=== PATIENT | male | born 1960 | race Caucasian/White ===

== ENCOUNTER 2017-03-13 11:51 | Outpatient (CLI) | payer BC, MEDICARE ==
--- OUTSIDE RECORDS SUMMARY | 2017-03-13 11:54 | XMS | Clinical Summary ---
:1960 Author Organization [facility] Address [address] [place] [address] Phone Care Team Providers Name Role Phone , Primary Care Provider Unavailable Allergies Not on File Current Medications Not on file Active Problems Not on file Social History Tobacco Use Types Packs/Day Years Used Date Never Assessed Sex Assigned at Date Recorded Not on file Last Filed Vital Signs Not on file Plan of Treatment Not on file Results Not on filefrom Last 3 Months
--- NOTE | 2017-03-13 12:58 | RAD ---
PA AND LATERAL VIEWS OF CHEST: Date: 03/13/17 HISTORY: Cough, congestion. FINDINGS: Comparison made with exam of 02/24/17. The heart size is normal. The lungs are well expanded without lobar consolidation or pneumothoraces. There are small posterior pleural effusions, new since the last exam. IMPRESSION: Small posterior pleural effusions. POS: [facility]
== END 2017-03-13 11:52 | disposition home or self-care (01) ==
LOC: SCSRAD 11:51
PROVIDERS: ATTEND Family Medicine
DX: R05 Cough (principal); R50.81 Fever presenting with conditions classified elsewhere; J90 Pleural effusion, not elsewhere classified
CPT/HCPCS: 71020

== ENCOUNTER 2017-03-14 18:50 | Emergency (ER) | payer BC, MEDICARE ==
--- OUTSIDE RECORDS SUMMARY | 2017-03-14 18:52 | XMS | Clinical Summary ---
:1960 Author Organization [facility] Address [address] [place] [address] Phone Care Team Providers Name Role Phone [...]
[2017-03-14] MEDS ORDERED: Albuterol Sulfate 2.5 mg/0.5 ml Neb ONE ×2 (20:14→20:29)
[2017-03-14] MEDS ORDERED: Sodium Chloride For Inhalation 0.9% 3 ML NEB ONE (20:30)
--- NOTE | 2017-03-14 22:14 | RAD ---
TWO VIEWS CHEST: 03/14/17 COMPARISON: 03/13/17 HISTORY: Cough and shortness of breath. FINDINGS: Persistent enlarged cardiac silhouette. Pulmonary vessels continue to be prominent. There is increas ed blunting of the left costophrenic angle due to pleural effusion. There are chronic interstitial c hanges throughout the lung parenchyma. Superimposed infiltrate in the lung bases cannot be excluded. No pneumothorax or osseous abnormality. IMPRESSION: Congestive heart failure. Continued surveillance. POS: [facility]
== END 2017-03-14 21:06 | disposition home or self-care (01) ==
LOC: SCSER 18:50
DX: J45.909 Unspecified asthma, uncomplicated (principal); I48.91 Unspecified atrial fibrillation; I11.0 Hypertensive heart disease with heart failure; I50.9 Heart failure, unspecified; G47.30 Sleep apnea, unspecified; E11.9 Type 2 diabetes mellitus without complications; E78.5 Hyperlipidemia, unspecified; F41.9 Anxiety disorder, unspecified; F32.9 Major depressive disorder, single episode, unspecified; F17.210 Nicotine dependence, cigarettes, uncomplicated; Z79.84 Long term (current) use of oral hypoglycemic drugs; Z79.891 Long term (current) use of opiate analgesic; Z79.899 Other long term (current) drug therapy
CPT/HCPCS: 71020; 93005; 94640; 94664; J7611

== ENCOUNTER 2017-04-02 08:52 | Outpatient (CLI) | payer BC, MEDICARE ==
[2017-04-02 10:25] LABS: Hematocrit 47.7 % (42.0-52.0); Mean Platelet Volume 6.6 fL (7.4-10.4); Red Blood Cell (RBC) Count 5.02 mill/uL (4.70-6.10); White Blood Cell (WBC) Count 8.1 thou/uL (4.8-10.8)
[2017-04-02 10:32] LABS: PTT 33.3 SEC (22.9-36.1); Prothrombin Time 12.9 SEC (12.0-14.7)
[2017-04-02 10:45] LABS: Anion Gap 12 mmol/L (10-20); BUN (Urea Nitrogen) 14 mg/dL (8.4-25.7); Calc. Creatinine Clearance 0 mL/min (70-130); Calcium 10.1 mg/dL (7.8-10.44); Carbon Dioxide 23 mmol/L (22-29); Chloride 104 mmol/L (98-107); Estimated GFR-MDRD Greater than 90
== END 2017-04-02 08:53 | disposition home or self-care (01) ==
LOC: LABBT 08:52
PROVIDERS: ATTEND Neurological Surgery
DX: Z01.812 Encounter for preprocedural laboratory examination (principal); M54.12 Radiculopathy, cervical region; M50.20 Other cervical disc displacement, unspecified cervical region
CPT/HCPCS: 80048; 85027; 85610; 85730

== ENCOUNTER 2017-04-07 05:31 | Day surgery (SDC) | payer BC, MEDICARE ==
[2017-04-02 09:18] VITALS: BMI 31.5
--- NOTE | 2017-04-02 14:19 | HP ---
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 He has been managing pain with physical maneuvers, medications, and activity modifications. These conservative measures have not helped with his pain. His professional treatment is not providing enough effective pain reliefallophyatic hydrocarbon and he is concerned that he is becoming weak. There are no left arm radicular pains or any incontinence reported. He has had this pain since 11/2016. Originally saw Dr. Love and then was referred to Dr. Briggs. PAST MEDICAL HISTORY: 1. Type 2 diabetes. 2. Hyperlipidemia. 3. Asthma. 4. Hypertension. 5. Ulcer disease. 6. Facial fracture with loss of number of teeth. 7. Carpal tunnel syndrome, bilateral. 8. Sleep apnea. 9. Ureteral stone. 10. Nephrolithiasis. 11. Acute pyelonephritis, ureteral stent. 12. CVA tenderness. 13. Reflex sympathetic dystrophy in the upper limb. 14. Vitamin B6-induced neuropathy 15. Essential hypertension, benign. ALLERGIES: PENICILLIN, NUCYNTA, TRAMADOL, SUBOXONE, LYRICA. REVIEW OF SYSTEMS: Ten-point review of systems completed and is otherwise negative unless stated in the above HPI. HEENT: Normocephalic, atraumatic. Hearing intact. Moist mucous membranes. Trachea midline. EYES: Pupils are equal and reactive to light. Extraocular muscles are intact. Sclerae is white, nonicteric. CARDIOVASCULAR: Normal S1, S2. Heart sounds regular rate and rhythm. No distal cyanosis or clubbing noted. RESPIRATORY: Patient had bilateral symmetric chest rise. Appears to be in no shortness breath. NEUROLOGIC: Motor Exam: Mild weakness on the right. Sensory exam, some loss of sensation in the C7 dermatome. IMAGING: MRI large cervical C6-C7 HNP, smaller disk at C5-C6. X-rays osteophytes shows at C6-C7, were obtained at [facility]. ASSESSMENT: 1. Cervical disk disorder at C6-C7 level with radiculopathy. 2. Complex regional pain syndrome one of the upper limb bilaterally. PLAN: Dr. Briggs had 20-minute discussion about arthroplasty with Mr. Foley. Informed consent was given. We discussed the indication, risks, benefits, alternatives, and expected results from surgery. The risks discussed included, but were not limited to bleeding, infection, CSF leak, nerve damage, weakness, swallowing trouble, feeding tube placement, tracheal injury, esophageal injury, vocal cord injury, spinal cord injury, incontinence, paralysis, ventilator dependence, wheelchair dependence, stroke, loss of vision, carotid artery injury , jugular vein injury, hardware misplacement, cardiopulmonary complications of anesthesia or . Long-term complications discussed included, but were not limited to hardware failure and degeneration of the surrounding disk. He understands the risks and is willing to proceed with the surgery. SHA
[2017-04-07] MEDS ORDERED: Fentanyl 250 MCG/5 ML VIAL ONE (06:12)
[2017-04-07] MEDS ORDERED: Midazolam HCl 2 mg/2 ml Vial ONE (06:12)
[2017-04-07] MEDS ORDERED: Sodium Chloride 0.9% 10 ML ONE (06:17)
[2017-04-07] MEDS ORDERED: Thrombin 5000 UNITS/5 ML VIAL ONE (06:17)
[2017-04-07] MEDS ORDERED: Clindamycin/D5W 900 mg/50 ml Premix Bag ONE (06:24)
[2017-04-07] MEDS ORDERED: Levofloxacin 500 mg/D5W 100 ml Premix Bag ONE (06:24)
[2017-04-07] MEDS ORDERED: Ondansetron HCl/PF 4 MG/2 ML Vial ONE (07:17)
[2017-04-07] MEDS ORDERED: Esmolol 100 MG/10 ML VIAL ONE (07:17)
[2017-04-07] MEDS ORDERED: Glycopyrrolate 0.2 MG/ML 5 ML SYRINGE ONE (07:17)
[2017-04-07] MEDS ORDERED: Dexamethasone 20 MG/5 ML VIAL ONE (07:17)
[2017-04-07] MEDS ORDERED: PHENYLEPHRINE-NS 100 MCG/ML 10 ML SYRINGE ONE (07:17)
[2017-04-07] MEDS ORDERED: ePHEDrine/0.9% NaCl/PF SYRINGE 50 mg/10 ml ONE (07:17)
[2017-04-07] MEDS ORDERED: Lidocaine 1% PF 5 ML VIAL ONE (07:17)
[2017-04-07] MEDS ORDERED: Propofol 200 MG/20 ML VIAL ONE (07:17)
[2017-04-07] MEDS ORDERED: Fentanyl 100 MCG/2 ML VIAL ONE ×4 (08:54→11:42)
--- NOTE | 2017-04-07 11:01 | OP ---
DATE OF PROCEDURE: 04/07/2017 SURGEON: Lindsay Briggs M.D. LOSS PREVENTION SUPERVISOR: Matias Parker PA-C. PREOPERATIVE INDICATION: Treat pain, prevent neurological deterioration. PREOPERATIVE DIAGNOSES: Intravertebral disk disease with cervical spinal stenosis and foraminal dis ease with radiculopathy at C6-C7. POSTOPERATIVE DIAGNOSES: Intravertebral disk disease with cervical spinal stenosis and foraminal di sease with radiculopathy at C6-C7. OPERATIVE PROCEDURE: Anterior cervical diskectomy, anterior cervical disk arthroplasty C6-C7. PREOPERATIVE MEDICATION: Ancef 2 grams IV. DRAIN NUMBER: Zero. DRAIN TYPE: None. OPERATIVE DICTATION: The patient was brought to the operating room. General endotracheal anesthesi a was induced. The patient was positioned on the operating table supine with his head supported by gel-filled donut shaped head rest. A lateral fluoro radiograph was used to plan our incision. The right side of the neck was sterilely prepped and draped. We opened with a 10 blade knife and contro lled bleeding with bipolar cautery. We dissected sharply to the platysma and cut this muscle in brendan e with our incision. We continued our dissection medial to the sternocleidomastoid, lateral to the trachea and esophagus. We arrived at the prevertebral space and placed a marker at C6-7. We took l ateral fluoro radiograph to confirm the levels upon which we were operating. We elevated the longus colli muscles off the anterior surface of C6 and C7 and placed a self-retaining retractor. Distrac tion pins were placed at C6 and C7 with radiographic guidance parallel to the endplates. We distrac cr across the intervening interspace with the [place] distractor. We incised the interspace with a 15 blade knife and removed disk contents using curettes and rongeurs. The operating microscope was brought into the field. Under microscopic magnification and using microsurgical techniques, we removed the remainder of the intervertebral disk. We accessed the ventral epidural space with a micro ball probe. We removed po sterior osteophytes at C6 and C7 with [place] rongeurs. We widened our anterior foraminotomy on ei ther side with 1 mm Kerr[place]. We turned our attention to sizing the interspace for our arthroplast y. Using angled curet, we flattened the medial portion of the uncovertebral joints. We made sure that the endplate at C7 was flat and that the endplate at C6 had a round shape recess to accept the super ior portion of the arthroplasty device. We measured the width of the interspace to 19 mm in height of 6 mm. A 19 x 6 x 15 mm arthroplasty device was brought into the field. We irrigated copiously w ith bacitracin irrigation before placing it. We advanced the arthroplasty device into the C6-7 inte rspace under radiographic guidance to the appropriate depth. We then removed the application device . We gently compressed across the interspace with our [place] distractor. We took AP and lateral fl uoro radiographs to confirm adequate positioning. We removed the [place] pins. We waxed the anterio r surface of vertebral body at C6 and C7, we irrigated copiously with bacitracin irrigation 1 last t ryanne. We closed the wound in anatomic layers. We applied a sterile dressing. This was a clean case with no contamination.
[2017-04-07] MEDS ORDERED: Acetaminophen/Codeine 30-300mg Tablet ONE (13:12)
--- OUTSIDE RECORDS SUMMARY | 2017-04-09 14:36 | XMS | Clinical Summary ---
:1960 Author Organization [facility] Address [address] [place] [address] Phone Care Team Providers Name Role Phone [...]
== END 2017-04-07 13:55 | disposition home or self-care (01) ==
LOC: SDC 05:31
PROVIDERS: ATTEND Neurological Surgery
PROC: 0RU30JZ Supplement Cervical Vertebral Disc with Synthetic Substitute, Open Approach (ICD-10-PCS; principal; 2017-04-07)
DX: M50.123 Cervical disc disorder at C6-C7 level with radiculopathy (principal); M48.02 Spinal stenosis, cervical region; M25.78 Osteophyte, vertebrae; E11.9 Type 2 diabetes mellitus without complications; J45.909 Unspecified asthma, uncomplicated; I10 Essential (primary) hypertension; G47.30 Sleep apnea, unspecified; Z79.01 Long term (current) use of anticoagulants; Z79.84 Long term (current) use of oral hypoglycemic drugs; Z79.899 Other long term (current) drug therapy; Z88.5 Allergy status to narcotic agent; Z88.0 Allergy status to penicillin; Z88.8 Allergy status to other drugs, medicaments and biological substances; Z91.018 Allergy to other foods; Z91.048 Other nonmedicinal substance allergy status; Z98.52 Vasectomy status; Z96.0 Presence of urogenital implants; Z90.89 Acquired absence of other organs; Z98.890 Other specified postprocedural states; Z87.81 Personal history of (healed) traumatic fracture; Z87.442 Personal history of urinary calculi
CPT/HCPCS: 76001; 96374; A4216; J1100; J1956; J2001; J2250; J2405; J2704; J3010; J3490

== ENCOUNTER 2017-05-07 13:07 | Day surgery (SDC) | payer BC, MEDICARE ==
[2017-05-07 14:02] LABS: #Basophils 0.1 thou/uL (0.0-0.2); #Eosinphils 0.2 thou/uL (0.0-0.7); #Lymphocytes 2.7 thou/uL (1.20-3.40); #Monocytes 0.6 thou/uL (0.11-0.59); #Neutrophils 5.7 thou/uL (1.40-6.50); %Basophils 0.9 % (0.0-1.0); %Eosinophils 1.8 % (0.0-10.0); %Lymphocytes 29.2 % (21.0-51.0); %Monocytes 6.7 % (0.0-10.0); Mean Platelet Volume 6.5 fL (7.4-10.4); Red Blood Cell (RBC) Count 4.93 mill/uL (4.70-6.10); White Blood Cell (WBC) Count 9.3 thou/uL (4.8-10.8)
[2017-05-07 14:08] LABS: PTT 43.8 SEC (22.9-36.1); Prothrombin Time 21.2 SEC (12.0-14.7)
[2017-05-07 14:29] LABS: ALT (SGPT) 28 U/L (8-55); AST (SGOT) 15 U/L (5-34); Alkaline Phosphatase 48 U/L (40-150); Anion Gap 15 mmol/L (10-20); BUN (Urea Nitrogen) 13 mg/dL (8.4-25.7); Bilirubin, Total 1.3 mg/dL (0.2-1.2); Calc. Creatinine Clearance 0 mL/min (70-130); Calcium 10.3 mg/dL (7.8-10.44); Carbon Dioxide 22 mmol/L (22-29); Chloride 102 mmol/L (98-107); Estimated GFR-MDRD 84; Protein, Total 7.6 g/dL (6.0-8.3)
[2017-05-07] MEDS ORDERED: Diprivan 20 ML ONE (14:38)
--- NOTE | 2017-05-07 17:04 | OP ---
DATE OF SERVICE: 05/07/2017 REFERRING PHYSICIAN: Dr. Wick. REASON FOR PROCEDURE: Mr. Foley is a 56-year-old man with now persisting atrial fibrillation. He had recent neck surgery and recently started on Xarelto about 3 weeks ago. He has been in persistent at rial fibrillation since, now he returns with rapid rates. He has been on metoprolol before, but he s topped that and his rates are extremely fast now. He has not missed his Xarelto medications. He started on Multaq this morning after in the clinic, he is scheduled for cardioversion this afternoon and effort restored sinus rhythm. PROCEDURE: The patient received propofol per Anesthesia specialist. Please see separate report. Af ter adequate level of sedation achieved, a synchronized 150-joule shock converted the patient back to sinus rhythm for a couple of beats, then atrial fibrillation occurred. I repeated 175-joule shock. I had seen in fact recurrent atrial fibrillation would fairly break after a couple of beats to sinus rhythm. CONCLUSION: Successful cardioversion, but recurrence of atrial fibrillation is seen. PLAN: For now, we will continue Multaq in effort to control his heart rates, consider adding beta bl ockers as well. Consider ablation procedures versus repeated cardioversion at a later date. Close f ollow up is requested. He is advised to go to the ER if tachypalpitations not improved with the abov e medications.
--- NOTE | 2017-05-11 08:45 | EKG ---
Test Reason : PRE-CARDIOVERSION Blood Pressure : / mmHG Vent. Rate : 120 BPM Atrial Rate : 267 BPM P-R Int : 000 ms QRS Dur : 088 ms QT Int : 312 ms P-R-T Axes : 000 042 036 degrees QTc Int : 440 ms Atrial fibrillation with rapid ventricular response with premature ventricular or aberrantly conducte d complexes Abnormal ECG When compared with ECG of 14-MAR-2017 19:53, No significant change was found Confirmed by Jimmy RIDDLE ([id number]) on 05/11/2017 8:44:52 AM Referred By: [facility] Confirmed By:Jimmy RIDDLE
== END 2017-05-07 16:08 | disposition home or self-care (01) ==
LOC: CCL 13:07
PROVIDERS: ATTEND Internal Medicine Cardiovascular Disease
DX: I48.1 Persistent atrial fibrillation (principal); G47.30 Sleep apnea, unspecified; E11.9 Type 2 diabetes mellitus without complications; M26.601 Right temporomandibular joint disorder, unspecified; G90.50 Complex regional pain syndrome I, unspecified; Z79.84 Long term (current) use of oral hypoglycemic drugs; Z79.01 Long term (current) use of anticoagulants; Z79.899 Other long term (current) drug therapy; Z99.89 Dependence on other enabling machines and devices; Z88.5 Allergy status to narcotic agent; Z91.018 Allergy to other foods; Z88.0 Allergy status to penicillin; Z88.8 Allergy status to other drugs, medicaments and biological substances; Z91.048 Other nonmedicinal substance allergy status; Z98.52 Vasectomy status; Z98.1 Arthrodesis status; Z90.89 Acquired absence of other organs; Z98.890 Other specified postprocedural states; Z87.442 Personal history of urinary calculi; Z87.01 Personal history of pneumonia (recurrent)
CPT/HCPCS: 80053; 85025; 85610; 85730; 92960; 93005; 93010; J2704

== ENCOUNTER 2017-05-27 14:42 | Outpatient (CLI) | payer BC, MEDICARE | END 2017-05-27 14:43 | disposition home or self-care (01) | LOC: BICRAD 14:42 | PROVIDERS: ATTEND Neurological Surgery | DX: G89.18 Other acute postprocedural pain (principal) | CPT/HCPCS: 72040 ==

== ENCOUNTER 2017-07-22 12:38 | Outpatient (CLI) | payer BC, MEDICARE ==
--- NOTE | 2017-07-24 11:22 | PFT ---
PATIENT HISTORY: HEIGHT: 62 IN WEIGHT: 233 SMOKER: NO HOW LON YEARS PACKS PER DAY 1 PRODUCTIVE COUGH: NO LUNG DISEASE: PHYSICIAN INTERPRETATION FINAL REPORT: Telephony Engineer comments patient had good effort cooperation PFT DATA: FVC 4.24 (125%), FEV1 3.17 (123%), FEV1/FVC 0.75. TLC 6.66 (131%), FRC, 2.58 (103%), or the 2.21 (131%). Diffusion work 31.19 (123%). The FEV1 and FVC are little elevated. The ratio falls within the normal limits suggesting no significant obstructive airflow limitation. There is no significant improvement following administration of bronchodilator. There is minimal scooping of the expiratory limb of the flow volume loop. The inspiratory limb is perfectly normal. The total lung capacity and residual volume are slightly elevated. Diffusion capacity is also slightly elevated. IMPRESSION: Overall, in these pulmonary function studies are most likely normal. Telephony Engineer: JUDIT Professor Of Chemistry: JUDIT DALTON
== END 2017-07-22 12:39 | disposition home or self-care (01) ==
LOC: CP 12:38
PROVIDERS: ATTEND Internal Medicine
DX: J45.909 Unspecified asthma, uncomplicated (principal)
CPT/HCPCS: 94060; 94727; 94729

== ENCOUNTER 2018-12-28 11:33 | Outpatient (CLI) | payer MEDICARE ==
--- NOTE | 2018-12-28 14:48 | RAD ---
PA AND LATERAL CHEST: HISTORY: Productive cough and fever. FINDINGS: Heart size and mediastinum are within normal limits. There are atherosclerotic changes of the aorta. The lungs are clear of any infiltrative process. A radiopaque density is seen overlying the lower cervical spine region, consistent with a disk implant. IMPRESSION: No active intrathoracic disease. POS: C
== END 2018-12-28 11:34 | disposition home or self-care (01) ==
LOC: SCSRAD 11:33
PROVIDERS: ATTEND Family Medicine
DX: R05 Cough (principal); J18.0 Bronchopneumonia, unspecified organism
CPT/HCPCS: 71046

== ENCOUNTER 2020-06-23 11:58 | Emergency (ER) | payer MEDICARE ==
[2020-06-23] MEDS ORDERED: Diltiazem 125 MG/25 ML ONE (12:17)
[2020-06-23 13:02] LABS: #Lymphocytes 2.1 thou/uL (1.20-3.40); #Monocytes 0.8 thou/uL (0.11-0.59); #Neutrophils 8.9 thou/uL (1.40-6.50); %Basophils 0.2 % (0.0-1.0); %Eosinophils 0.3 % (0.0-10.0); %Lymphocytes 17.5 % (21.0-51.0); %Monocytes 6.4 % (0.0-10.0); %Neutrophils 75.6 % (42.0-75.0); Hemoglobin 17.3 g/dL (14.0-18.0); Mean Corpuscular HGB CONC 35.2 g/dL (32.0-36.0); Mean Corpuscular Hemoglobin 33.1 pg (27.0-31.0); Mean Platelet Volume 6.5 fL (7.4-10.4); Platelet Count 272 thou/uL (130-400); RBC Distribution Width 12.7 % (11.5-14.5); Red Blood Cell (RBC) Count 5.22 mill/uL (4.70-6.10); White Blood Cell (WBC) Count 11.8 thou/uL (4.8-10.8)
[2020-06-23 13:21] LABS: ALT (SGPT) 89 U/L (8-55); AST (SGOT) 39 U/L (5-34); Albumin 4.7 g/dL (3.5-5.0); Alkaline Phosphatase 46 U/L (40-110); Anion Gap 20 mmol/L (10-20); BUN (Urea Nitrogen) 12 mg/dL (8.4-25.7); Bilirubin, Total 1.6 mg/dL (0.2-1.2); Calc. Creatinine Clearance 0 mL/min (70-130); Calcium 9.4 mg/dL (7.8-10.44); Carbon Dioxide 23 mmol/L (22-29); Chloride 101 mmol/L (98-107); Globulin 2.8 g/dL (2.4-3.5); Glucose 269 mg/dL (70-105); Magnesium 2.1 mg/dL (1.6-2.6); Potassium 4.7 mmol/L (3.5-5.1); Protein, Total 7.5 g/dL (6.0-8.3); Sodium 139 mmol/L (136-145)
[2020-06-23 14:52] LABS: Troponin I Less than 0.010 ng/mL (< 0.028)
== END 2020-06-23 16:20 | disposition home or self-care (01) ==
LOC: ERS 11:58
DX: I48.91 Unspecified atrial fibrillation (principal); I10 Essential (primary) hypertension; G47.30 Sleep apnea, unspecified; E11.9 Type 2 diabetes mellitus without complications; E78.5 Hyperlipidemia, unspecified; F17.210 Nicotine dependence, cigarettes, uncomplicated; Z79.84 Long term (current) use of oral hypoglycemic drugs; Z79.82 Long term (current) use of aspirin; Z79.51 Long term (current) use of inhaled steroids; Z79.899 Other long term (current) drug therapy
CPT/HCPCS: 36415; 80053; 83735; 84484; 85025; 93005; 96365; 96366; 96376

== ENCOUNTER 2022-04-30 07:17 | Outpatient (CLI) | payer MEDICARE ==
[2022-04-30] MEDS ORDERED: Iopamidol-370 76% 500 ML 1 ML ONE (08:41)
== END 2022-04-30 07:18 | disposition home or self-care (01) ==
LOC: BICCT 07:17
PROVIDERS: ATTEND Student in an Organized Health Care Education/Training Program
DX: M79.9 Soft tissue disorder, unspecified (principal)
CPT/HCPCS: 70481; 82565; Q9967